=== PATIENT | female | born 1990 | race Caucasian/White ===

== ENCOUNTER → 2019-04-23 11:27 | Outpatient (CLI) | payer OTHER, SELFPAY ==
[2019-04-23 12:56] LABS: Urine Amphetamines Negative (Negative); Urine Barbiturates Negative (Negative); Urine Benzodiazepines Negative (Negative); Urine Cocaine Negative (Negative); Urine MDMA Negative (Negative); Urine Methadone Negative (Negative); Urine Methamphetamines Negative (Negative); Urine Morphine/Opi cutoff 2000 Negative (Negative); Urine Oxycodone Negative (Negative); Urine Phencyclidine Negative (Negative); Urine Tetrahydrocannabinol Negative (Negative); Urine Tricyclic Antidepressant Negative (Negative)
== END ==
PROVIDERS: Family Provider Physician Assistant; PCP Physician Assistant; Visit Provider Family Medicine Sleep Medicine
DX: G47.33 Obstructive sleep apnea (adult) (pediatric) (principal)
CPT/HCPCS: 80305

== ENCOUNTER → 2019-08-24 14:19 | Outpatient (CLI) | payer OTHER, SELFPAY ==
[2019-08-24 14:40] LABS: Hematocrit 38.7 % (36-46); Hemoglobin 13.3 g/dL (12.0-16.0)
[2019-08-24 16:31] LABS: TSH w/ Reflex to FT4 2.43 uIU/mL (0.47-4.68)
== END ==
PROVIDERS: Family Provider Physician Assistant; PCP Physician Assistant; Visit Provider Obstetrics & Gynecology
DX: N93.9 Abnormal uterine and vaginal bleeding, unspecified (principal)
CPT/HCPCS: 36415; 84443; 85014; 85018

== ENCOUNTER → 2020-04-26 17:39 | Outpatient (CLI) | payer OTHER, SELFPAY ==
[2020-04-26 18:13] LABS: Add Manual Diff / Slide Review NO; Basophils Absolute Auto 0 /uL (0-100); Basophils Percent Auto 0.4 % (0-2); Eosinophils Absolute Auto 100 /uL (0-450); Eosinophils Percent Auto 0.8 % (2-4); Hematocrit 39.3 % (36-46); Hemoglobin 13.4 g/dL (12.0-16.0); Lymphocytes Absolute Auto 3400 /uL (1100-4500); Lymphocytes Percent Auto 39.3 % (25-40); Mean Corpuscular HGB Conc 34.2 % (30-36); Mean Corpuscular Hemoglobin 30.5 PG (26-34); Mean Corpuscular Volume 89.1 fL (80-100); Monocytes Absolute Auto 500 /uL (0-900); Monocytes Percent Auto 6.2 % (3-14); Neutrophils Absolute Auto 4600 /uL (1500-7000); Neutrophils Percent Auto 53.3 % (50-75); Platelet Count 244 X10^3/uL (150-400); Red Blood Cell Count 4.41 X10^6/uL (4.0-5.2); Red Cell Distribution Width 12.6 % (11.6-14.8); White Blood Cell Count 8.7 X10^3/uL (4.5-11.0)
[2020-04-26 18:34] LABS: Alanine Aminotransferase 15 IU/L (<35); Albumin 4.2 g/dL (3.5-5.0); Albumin Globulin Ratio 1.3 (1.0-2.8); Alkaline Phosphatase 45 U/L (38-126); Aspartate Aminotransferase 23 IU/L (14-36); BUN Creatinine Ratio 9.2 (6-22); Bilirubin Total 1.1 mg/dL (0.2-1.3); Blood Urea Nitrogen 12 mg/dL (7-17); C-Reactive Protein Quant 0.8 mg/dL (<1.0); Calcium 8.9 mg/dL (8.4-10.2); Carbon Dioxide 27 mmol/L (22-32); Chloride 102 mmol/L (98-107); Estimated Glomerular Filt Rate 48.8 mL/min (>60); Globulin 3.2 g/dL (1.7-4.1); Glucose 110 mg/dL (70-100); HEMOLYSIS < 15 (0-50); Potassium 3.8 mmol/L (3.4-5.1); Sodium 136 mmol/L (137-145); Total Protein 7.4 g/dL (6.3-8.2)
[2020-04-26 18:46] LABS: Erythrocyte Sedimentation Rate 6 MM/HR (0-20)
[2020-05-04 09:41] LABS: Adalimumab Antiboday <25 ng/mL (.); Adalimumab Drug Level 10 ug/mL (.)
== END ==
PROVIDERS: Family Provider Physician Assistant; PCP Physician Assistant; Referring Provider Internal Medicine Gastroenterology; Visit Provider Internal Medicine Gastroenterology
DX: K50.90 Crohn's disease, unspecified, without complications (principal)
CPT/HCPCS: 36415; 80053; 80145; 82397; 85025; 85651; 86140

== ENCOUNTER → 2020-05-04 16:18 | Outpatient (CLI) | payer OTHER, SELFPAY ==
[2020-05-04 17:36] LABS: Albumin 4.4 g/dL (3.5-5.0); BUN Creatinine Ratio 13.9 (6-22); Blood Urea Nitrogen 11 mg/dL (7-17); Calcium 9.1 mg/dL (8.4-10.2); Carbon Dioxide 28 mmol/L (22-32); Chloride 103 mmol/L (98-107); Estimated Glomerular Filt Rate > 60.0 mL/min (>60); Glucose 98 mg/dL (70-100); HEMOLYSIS < 15 (0-50); Phosphorous 2.9 mg/dL (2.5-4.5); Sodium 137 mmol/L (137-145)
== END ==
PROVIDERS: Family Provider Physician Assistant; PCP Physician Assistant; Referring Provider Physician Assistant; Visit Provider Physician Assistant
DX: R79.89 Other specified abnormal findings of blood chemistry (principal)
CPT/HCPCS: 36415; 80069

== ENCOUNTER → 2020-09-26 14:47 | Outpatient (CLI) | payer OTHER, SELFPAY ==
[2020-09-26 16:25] LABS: Add Manual Diff / Slide Review NO; Basophils Absolute Auto 0 /uL (0-100); Basophils Percent Auto 0.4 % (0-2); Eosinophils Absolute Auto 100 /uL (0-450); Eosinophils Percent Auto 0.7 % (2-4); Hematocrit 38.2 % (36-46); Hemoglobin 12.9 g/dL (12.0-16.0); Lymphocytes Absolute Auto 3000 /uL (1100-4500); Lymphocytes Percent Auto 42.5 % (25-40); Mean Corpuscular HGB Conc 33.8 % (30-36); Mean Corpuscular Hemoglobin 30.4 PG (26-34); Monocytes Absolute Auto 300 /uL (0-900); Monocytes Percent Auto 4.4 % (3-14); Neutrophils Absolute Auto 3700 /uL (1500-7000); Platelet Count 250 X10^3/uL (150-400); Red Blood Cell Count 4.25 X10^6/uL (4.0-5.2); Red Cell Distribution Width 12.7 % (11.6-14.8); White Blood Cell Count 7.1 X10^3/uL (4.5-11.0)
[2020-09-26 16:49] LABS: Alanine Aminotransferase 12 IU/L (<35); Albumin 3.9 g/dL (3.5-5.0); Albumin Globulin Ratio 1.3 (1.0-2.8); Alkaline Phosphatase 41 U/L (38-126); Aspartate Aminotransferase 19 IU/L (14-36); BUN Creatinine Ratio 14.6 (6-22); Bilirubin Total 1.2 mg/dL (0.2-1.3); Blood Urea Nitrogen 12 mg/dL (7-17); C-Reactive Protein Quant 0.6 mg/dL (<1.0); Carbon Dioxide 26 mmol/L (22-32); Chloride 102 mmol/L (98-107); Estimated Glomerular Filt Rate > 60.0 mL/min (>60); Glucose 129 mg/dL (70-100); HEMOLYSIS < 15 (0-50); Potassium 4.1 mmol/L (3.4-5.1); Sodium 134 mmol/L (137-145); Total Protein 6.9 g/dL (6.3-8.2)
[2020-09-26 17:14] LABS: Erythrocyte Sedimentation Rate 7 MM/HR (0-20)
[2020-10-03 17:39] LABS: Adalimumab Antiboday <25 ng/mL (.); Adalimumab Drug Level 9.5 ug/mL (.)
== END ==
PROVIDERS: Family Provider Physician Assistant; PCP Physician Assistant; Referring Provider Internal Medicine Gastroenterology; Visit Provider Internal Medicine Gastroenterology
DX: K50.90 Crohn's disease, unspecified, without complications (principal)
CPT/HCPCS: 36415; 80053; 80145; 82397; 85025; 85651; 86140

== ENCOUNTER → 2021-02-02 15:04 | Outpatient (CLI) | payer OTHER, SELFPAY ==
[2021-02-02 15:51] LABS: Add Manual Diff / Slide Review NO; Basophils Absolute Auto 0 /uL (0-100); Basophils Percent Auto 0.4 % (0-2); Eosinophils Absolute Auto 0 /uL (0-450); Eosinophils Percent Auto 0.4 % (2-4); Hematocrit 38.9 % (36-46); Hemoglobin 13.4 g/dL (12.0-16.0); Lymphocytes Absolute Auto 3100 /uL (1100-4500); Lymphocytes Percent Auto 38.4 % (25-40); Mean Corpuscular HGB Conc 34.5 % (30-36); Mean Corpuscular Hemoglobin 30.8 PG (26-34); Mean Corpuscular Volume 89.2 fL (80-100); Monocytes Absolute Auto 500 /uL (0-900); Monocytes Percent Auto 6.6 % (3-14); Neutrophils Absolute Auto 4400 /uL (1500-7000); Neutrophils Percent Auto 54.2 % (50-75); Platelet Count 263 X10^3/uL (150-400); Red Blood Cell Count 4.37 X10^6/uL (4.0-5.2); Red Cell Distribution Width 13.4 % (11.6-14.8)
[2021-02-02 16:23] LABS: Alanine Aminotransferase 14 IU/L (<35); Albumin 4.1 g/dL (3.5-5.0); Albumin Globulin Ratio 1.2 (1.0-2.8); Alkaline Phosphatase 54 U/L (38-126); Aspartate Aminotransferase 22 IU/L (14-36); BUN Creatinine Ratio 15.6 (6-22); Bilirubin Total 1.2 mg/dL (0.2-1.3); Blood Urea Nitrogen 12 mg/dL (7-17); C-Reactive Protein Quant 0.7 mg/dL (<1.0); Calcium 9.3 mg/dL (8.4-10.2); Carbon Dioxide 24 mmol/L (22-32); Chloride 103 mmol/L (98-107); Estimated Glomerular Filt Rate > 60.0 mL/min (>60); Globulin 3.3 g/dL (1.7-4.1); Glucose 92 mg/dL (70-100); HEMOLYSIS < 15 (0-50); Potassium 3.9 mmol/L (3.4-5.1); Sodium 136 mmol/L (137-145); Total Protein 7.4 g/dL (6.3-8.2)
[2021-02-02 20:21] LABS: Erythrocyte Sedimentation Rate 9 MM/HR (0-20)
[2021-02-12 09:19] LABS: Adalimumab Antiboday 31 ng/mL (.); Adalimumab Drug Level 9.7 ug/mL (.)
== END ==
PROVIDERS: Family Provider Physician Assistant; PCP Physician Assistant; Referring Provider Internal Medicine Gastroenterology; Visit Provider Internal Medicine Gastroenterology
DX: K50.90 Crohn's disease, unspecified, without complications (principal)
CPT/HCPCS: 36415; 80053; 80145; 82397; 85025; 85651; 86140

== ENCOUNTER → 2021-08-31 13:46 | Outpatient (CLI) | payer OTHER, SELFPAY ==
[2021-08-31 14:32] LABS: Add Manual Diff / Slide Review NO; Basophils Absolute Auto 0 /uL (0-100); Basophils Percent Auto 0.5 % (0-2); Eosinophils Absolute Auto 100 /uL (0-450); Eosinophils Percent Auto 0.8 % (2-4); Hemoglobin 13.7 g/dL (12.0-16.0); Lymphocytes Absolute Auto 2800 /uL (1100-4500); Lymphocytes Percent Auto 38.8 % (25-40); Mean Corpuscular HGB Conc 34.2 % (30-36); Mean Corpuscular Hemoglobin 30.6 PG (26-34); Mean Corpuscular Volume 89.4 fL (80-100); Monocytes Absolute Auto 500 /uL (0-900); Monocytes Percent Auto 7.4 % (3-14); Neutrophils Absolute Auto 3800 /uL (1500-7000); Neutrophils Percent Auto 52.5 % (50-75); Platelet Count 274 X10^3/uL (150-400); Red Blood Cell Count 4.47 X10^6/uL (4.0-5.2); Red Cell Distribution Width 12.3 % (11.6-14.8); White Blood Cell Count 7.3 X10^3/uL (4.5-11.0)
[2021-08-31 15:24] LABS: Free T4, Direct Thyroxine 0.82 ng/dL (0.78-2.19)
[2021-08-31 15:38] LABS: Thyroid Stimulating Hormone 1.79 uIU/mL (0.47-4.68)
[2021-09-01 09:09] LABS: Mumps Virus IgG Antibody >300.0 AU/mL (Immune >10.9); Rubeola Measles IgG > 300.0 AU/mL (Immune >16.4); Varicella IgG Antibody 3599 index (Immune >165)
== END ==
PROVIDERS: Family Provider Physician Assistant; PCP Physician Assistant; Referring Provider Obstetrics & Gynecology; Visit Provider Obstetrics & Gynecology
DX: Z31.69 Encounter for other general counseling and advice on procreation (principal)
CPT/HCPCS: 36415; 84439; 84443; 85025; 86735; 86762; 86765; 86787

== ENCOUNTER 2023-05-14 07:05 | Emergency (ER) | payer OTHER, SELFPAY ==
[2023-05-14 07:16] VITALS: BP 139/98; PULSE 103; RESP 16; TEMP 37; O2SAT 98; BMI 34.7
--- NOTE | 2023-05-14 07:27 | ED_ITS ---
HPI - Wound/Laceration General Chief Complaint: Wound/Laceration Stated Complaint: Had an IV and iv area is swollen lt arm Time Seen by Provider: 05/14/23 07:10 Source: patient Mode of arrival: Ambulatory History of Present Illness HPI narrative: Patient is a 32-year-old female who recently is . She was just discharged on Friday. Had an IV in her left arm. The IV was removed on Friday. It was yesterday when she started to notice some redness and swelling to her left forearm around the IV site. She circled it with a marker. She thinks that this morning it is somewhat worse than what it was yesterday. She denies any f darleen but does have quite a bit of discomfort in that arm. She is . Related Data Home Medications Medication Instructions Recorded Confirmed adalimumab [Humira] SUBCUT .Twice a month 03/29/19 10/08/22 docosahexaenoic acid 200 mg 200 mg PO DAILY 09/10/22 10/08/22 capsule ( DHA) prenat.vits,bernice,gsf-vklo-wqwbd 1 tab PO DAILY 09/10/22 10/08/22 Previous Rx's Medication Instructions Recorded cephalexin 500 mg capsule 500 mg PO QID 5 days #20 caps 05/14/23 Allergies Allergy/AdvReac Type Severity Reaction Status Date / Time amoxicillin Allergy Rash Verified 05/14/23 07:22 infliximab [From Remicade] Allergy Pain in Verified 05/14/23 07:22 joints and Temp Paralyzed eggs Allergy Hives, Uncoded 10/08/22 15:37 Diarrhea Review of Systems Constitutional Constitutional: Reports system reviewed and no additional complaints, except as documented Musculoskeletal Musculoskeletal: Reports system reviewed and no additional complaints, except as documented Integumentary/Breasts Skin/Breast: Reports system reviewed and no additional complaints, except as documented Patient History Medical History Abdominal pain Abnormal uterine bleeding Anemia (~2008) Ankylosing spondylitis (~2008) Crohn's disease (regional enteritis) (~2008) Fatigue Heavy menstrual period (~2016) HSV-1 infection Idiopathic hypersomnia Irregular menstrual cycle Painful menstrual periods Shingles Surgical History Anesthesia History of carpal tunnel release History of tonsillectomy (~1999) Family History (Updated 09/10/22 @ 16:13 by Jacquelyn Montano RN) Sister ADD (attention deficit disorder) without hyperactivity Father ADD (attention deficit disorder) without hyperactivity Mother Anxiety Gestational diabetes Grandmother Diabetes mellitus Grandfather ALS (amyotrophic lateral sclerosis) Social History marital status: number of children: 1 (part-time stepson) household members: spouse and children lives independently: Yes caregiver/support person: Yes housing: house pets and animals: No education level: vocational occupational status: employed (works from home) current occupational exposures/hazards: No special radha needs: No travel history: recent (domestic only) seatbelt use: always helmet use: Yes water heater temp set < 120 deg: Yes working smoke detector in home: Yes fire extinguisher in home: Yes carbon monox detector in home: Yes firearms in home: No do you feel safe at home: Yes Smoking Status: Never smoker second hand exposure: No alcohol intake: former (1-2/week when not ) substance use type: does not use during the past year weight has: remained stable well-balanced diet: about half the time daily servings fruits/ve-4 caffeine: Yes (1 cup coffee/day) Type(s) of exercise: walking, aerobic, regular exercise and weight lifting frequency: 3-4 times per week Smoking Status: Never smoker Substance Use Type: does not use Exam Initial Vital Signs Initial Vital Signs: Vital Signs Temperature 98.6 F 05/14/23 07:16 Pulse Rate 103 H 05/14/23 07:16 Respiratory Rate 16 05/14/23 07:16 Blood Pressure 139/98 H 05/14/23 07:16 Pulse Oximetry 98 05/14/23 07:16 Oxygen Delivery Method Room Air 05/14/23 07:16 Const General: cooperative and comfortable Skin Other: Patient does have a 5 cm x 3 cm area redness around the area where the IV was inserted. There was no streaking up her arm. There was some induration in this area. No abscess. No pustules. Extrem Other: Swelling to the left forearm around the IV site Course Vital Signs Vital signs: Vital Signs - 8 hr 09/20/23 07:16 Temperature 98.6 F Pulse Rate 103 H Respiratory Rate 16 Blood Pressure 139/98 H Pulse Oximetry 98 Oxygen Delivery Method Room Air MDM - Wound/Laceration MDM Narrative Medical decision making narrative: History and physical today is consistent with a small area of cellulitis around the insertion site from the IV. I have low suspicion for an abscess based on he r exam today. I have also low suspicion that this is a DVT or thrombophlebitis given the appearance. Also have low suspicion that there was any infiltration of any medication based on the timing of the redness in the swelling. She is . Will send home on antibiotics. She was given return precautions. She expressed understanding and agreement. Discharge Plan Departure Patient Disposition: Home Clinical Impression: Cellulitis Instructions: DI for Cellulitis -- Adult Activity Restrictions/Additional Instructions: The antibiotic that we are placing you on is considered safe in . I recommend that you take it as directed. You can also take Tylenol and ibuprofen. Keep all of your scheduled medical appointments. Return to the emergency department for new or worsening symptoms. Prescriptions: New cephalexin 500 mg capsule 500 mg PO QID 5 Days Qty: 20 0RF No Action prenat.vits,bernice,rom-yzss-lvaun Tablet 1 tab PO DAILY DHA 200 mg capsule 200 mg PO DAILY adalimumab SUBCUT .Twice a month Referrals: Gege Velez PA-C [Primary Care Provider] - Stand Alone Forms: Patient Portal/API
== END 2023-05-14 07:39 | disposition home or self-care (01) ==
PROVIDERS: Emergency Provider Emergency Medicine; Family Provider Physician Assistant; PCP Physician Assistant
DX: L03.114 Cellulitis of left upper limb (principal)
CPT/HCPCS: 99281; 99282

== ENCOUNTER 2023-09-17 08:15 | Outpatient (RCR) | payer OTHER, SELFPAY ==
--- NOTE | 2023-07-09 16:45 | PT.OIE ---
Current Diagnoses Stress incontinence (female) (male) (07/15/23) Pelvic muscle wasting (07/15/23) Other complications of the puerperium, not elsewhere classified (07/15/23) Pelvic and perineal pain (07/15/23) Past Medical History (Last Reviewed 05/14/23 @ 07:30 by Paco Patel DO) Abdominal pain Abnormal uterine bleeding Anemia (~2008) Ankylosing spondylitis (~2008) Crohn's disease (regional enteritis) (~2008) Fatigue Heavy menstrual period (~2016) HSV-1 infection Idiopathic hypersomnia Irregular menstrual cycle Painful menstrual periods Shingles Past Surgical History (Last Reviewed 01/01/22 @ 14:55 by Jaden Russell MD) Anesthesia History of carpal tunnel release History of tonsillectomy (~1999) Visit Care Team Role Provider Type Anya Murray PA-C Family Provider Advanced Refractory Technician Primary Care Provider Specialty: Medical Address: [address] [place] [address], [id number] Email: Donato Wood MD Attending Provider Non-Staff Referring Provider Specialty: RN LICENSED PRACTICAL Address: [address] [place] [address], [id number] Fax: Email: Physical Therapy Initial Evaluation PT-OP-A Visit Information Start: 07/08/23 15:12 Freq: Status: Active Protocol: Document 07/09/23 09:00 [facility] (Rec: 07/09/23 12:52 [facility] [id number]) Out-Patient Physical Therapy Visit Information Visit Information Visit Type Initial Evaluation Visit Start Time 09:05 Visit Stop Time 19:50 Total Visit Minutes 45 Visit Number 1 Evaluation Information Evaluation Date 07/09/23 PT-OP-B Current Condition Start: 07/08/23 15:12 Freq: Status: Active Protocol: Document 07/09/23 09:00 [facility] (Rec: 07/09/23 09:24 [facility] [id number]) Current Condition History of Current Condition Onset Date May 10 Current Complaints urinary leakge, pelvic pressure and heaviness, perineal tear History of Current Condition pt notes she had her baby girl 05/10/23, baby was sunnyside out and Viki pushed her out in 10 pushes. She tore extensively and hemmoraghed and had to go to the OR, she had to wait 5 hours to push as the doctor was not there. She had all internal stitches and it did tear into her rectum and she had over 100 stitches. She was on antibiotics for 4-5 weeks. She also has Crohn's disease so healing takes longer. She was on oxycodone x 5 weeks In the last couple of weeks sitting is better, she is now off the oxycodene and has been able to go on walks. SHe describes her pain as a pressure. She feels it consistently. The first two weeks she needed to weak a diaper as she had no control. Now voiding is better but she definately leaks, SHe is able to control her bowels but she has urgency and has to go right when she gets the urge. SHe does have hemmhroids. She notes numbness and decreased sensation. She is feeling low back pain and feeling that she has no core control. Treatment Goals Patient/Caregiver Goals Viki's goals include improving strength of the pelvic floor and overall core control eliminating urinary incontinence and fecal urgency . She would like to return to exercise and walking Current Functional Impairments (Reported) Functional Limitations- Mobility/Gait unable to walk greater than 30 min prior to pelvic fatigue PT-OP-C Subjective Start: 07/08/23 15:12 Freq: Status: Active Protocol: Document 07/08/23 14:31 [facility] (Rec: 07/15/23 14:45 [facility] [id number]) OP-PT Subjective Patient Comments Patient Comments pt notes the stretchng seems so difficult, feels numb internally, baby posteriorlly turned PT-OP-I Pelvic Floor Start: 07/08/23 15:12 Freq: Status: Active Protocol: Document 07/09/23 09:00 [facility] (Rec: 07/15/23 16:23 [facility] [id number]) Pelvic Floor Assessment Urine Pelvic Floor Surgery No: s/p vaginal delivery with tearing Urinary Symptoms Pain Other Urinary Symptoms pelvic pressure Leakage Size Large Leakage Cause Cough,Exercise,Lifting,Sneeze Other Leakage Causes constant leakage all day despite activity, wearing maxi pads for protections Leaks Per Day constant Urine Pad Type Maxi Pad Pelvic Clock Pelvic Clock 12-3 Atrophy Pelvic Clock 3-6 Atrophy,Tightness Pelvic Clock 6-9 Atrophy Pelvic Clock 9-12 Atrophy Contraction Ability Voluntary Contraction Weak Voluntary Relaxation Weak Manual Muscle Testing Left 1 Manual Muscle Testing Right 3 Manual Muscle Testing Anterior 1 Manual Muscle Testing Posterior 1 Muscle Endurance (Seconds) 2 Comments Pelvic Floor Comments pt notes she had 100 stitches in her pelvic floor after delivery, she is tight and numb on the left side as compared to the right side PT-OP-J Posture/Palpation/Skin Start: 07/08/23 15:12 Freq: Status: Active Protocol: Document 07/09/23 09:00 [facility] (Rec: 07/15/23 16:25 [facility] [id number]) Palpation Assessment Location pelvic floor Palpation Details tightness and guarding on the left lateral wall of the levator ani, there is no sensation on the left side to palpation This is the side where the majority of all the stitches were PT-OP-M Strength Start: 07/08/23 15:12 Freq: Status: Active Protocol: Document 07/09/23 09:00 [facility] (Rec: 07/15/23 16:24 [facility] [id number]) Trunk Strength Trunk Manual Muscle Testing Core Stabilization decreased core stabilization following delivery as pt underwent surgical repair, decreased Transverse abdominal activation PT-OP-Q Treatments Start: 07/08/23 15:12 Freq: Status: Active Protocol: Document 07/15/23 14:46 [facility] (Rec: 07/15/23 15:05 [facility] [id number]) Therapeutic Exercises Supine Exercises supine ball squeeze Reps/Minutes x 10 reps supine pelvic floor contract relax Reps/Minutes x 10 reps holding x 10 reps and resting x 10 reps 13 uv average and 30 ma Comments with EMG biofeedback PT-OP-T Assessment and Plan Start: 07/08/23 15:12 Freq: Status: Active Protocol: Document 07/09/23 09:00 [facility] (Rec: 07/15/23 16:29 [facility] [id number]) Physical Therapy Assessment Rehab Potential Rehabilitation Potential Excellent Evaluation Complexity Number of Personal Factors/Comorbidities 0 Number of Body Systems Impaired 1-2 Clinical Presentation at Evaluation Stable Impairments Impairments Activity Tolerance,Functional Activities,Strength,Tone Other Impairments urinary incontinence Goals 4 Impairment Decreased pelvic floor endurance Short Term Goal (STG) Viki is able to sustain a pelvic floor contraction in supine x 10 seconds STG Duration 5 weeks Revenue Research Analyst Goal (LTG) Viki is able to sustain a pelvic floor contraction in standing for 5 seconds LTG Duration 12 weeks 3 Impairment Pelvic pressure that increases with standing and activity limiting endurance for walking and exercise Jail Goal (LTG) Viki is able to return to walking 1-2 miles without increase in pelvic pressure LTG Duration 12 weeks 2 Impairment Constant urinary leakage throughout the day and Viki is using maxi pads for protection Jail Goal (LTG) Viki reports a overall reduction in urinary leakage and is able to decrease protection to a panty liner LTG Duration 12 weeks 1 Impairment Decreased pelvic floor strength with MMT of 1/5 for all turpin of the levator ani Short Term Goal (STG) Viki is educated in pelvic floor facilitation and EMG biofeedback is used to help her with pelvic floor recruitment STG Duration 3 weeks Revenue Research Analyst Goal (LTG) Viki is able to improve her pelvic floor strength to 3/5 MMT or better for improved support to her pelvic organs LTG Duration 12 weeks Assessment Summary Assessment Viki is a 33 year old female 2 months postpostpartum from a vaginal delivery with internal tearing and 4th perineal tearing with delivery . Viki notes she needed to be taken to the OR after delivery due to bleeding and she had over 100 stitches. She has had a slow recovery and reports constant urinary leakage at this time. She also fecal urgency and is able to control bowel movements as long as she is close to a bathroom. With pelvic floor exam today Viki is weak throughout her pelvic floor and tests 1/5 MMT for all aspects of the levator ani. She presents with numbness to palpation on the left lateral wall of the pelvic clock. There is some guarding and tightness on the left side of the levator ani and this is were Viki notes most of her internal stitches were located. She was given gentle stretches today to start working on relaxing the left lateral wall of the levator ani. Viki has difficulty sustaining a pelvic floor contraction more than a few seconds. Her goals are to return to exercise and walking without leakage and to eliminate pelvic pressure. Viki is a good candidate for Pelvic PT Physical Therapy Plan Frequency and Duration Frequency of Treatment 1x/Week Duration of treatment (weeks) 12 Plan of Care Start Date 07/09/23 Plan of Care End Date 10/01/23 Therapeutic Interventions Therapeutic Interventions Home Exercise Program,Manual Therapy,Neuromuscular Re- education,Patient/Caregiver Education,Self-Care/Home Management,Soft Tissue Mobilization,Therapeutic Exercises Modalities Biofeedback,Electric Stimulation Other Therapeutic Interventions NMES for the pelvic floor Next Visit Focus/Plan Next Note Type Treatment Note Next Visit Plan Begin NMES next visit for pelvic floor neuro stimulation and initiate EMG biofeedback
--- NOTE | 2023-07-09 16:46 | PT.OPPOC ---
Physical, Occupational & Speech Therapy At [facility] Current Diagnoses Stress incontinence (female) (male) (07/15/23) Pelvic muscle wasting (07/15/23) Other complications of the puerperium, not elsewhere classified (07/15/23) Pelvic and perineal pain (07/15/23) Visit Care Team Role Provider Type Anya Murray PA-C Family Provider Advanced Cooking Teacher Primary Care Provider Specialty: Medical Address: [address] [place] [address], [phone] Email: Donato Wood MD Attending Provider Non-Staff Referring Provider Specialty: CLIENT ARCHITECT Address: [address] [place] [address], [phone] Fax: Email: Plan Of Care PT-OP-T Assessment and Plan Start: 07/08/23 15:12 Freq: Status: Active Protocol: Document 07/09/23 09:00 [facility] (Rec: 07/15/23 16:29 [facility] [id number]) Physical Therapy Assessment Rehab Potential Rehabilitation Potential Excellent Evaluation Complexity Number of Personal Factors/Comorbidities 0 Number of Body Systems Impaired 1-2 Clinical Presentation at Evaluation Stable Impairments Impairments Activity Tolerance,Functional Activities,Strength,Tone Other Impairments urinary incontinence Goals 4 Impairment Decreased pelvic floor endurance Short Term Goal (STG) Viki is able to sustain a pelvic floor contraction in supine x 10 seconds STG Duration 5 weeks [employer] Tax Goal (LTG) Viki is able to sustain a pelvic floor contraction in standing for 5 seconds LTG Duration 12 weeks 3 Impairment Pelvic pressure that increases with standing and activity limiting endurance for walking and exercise [employer] Tax Goal (LTG) Viik is able to return to walking 1-2 miles without increase in pelvic pressure LTG Duration 12 weeks 2 Impairment Constant urinary leakage throughout the day and Viki is using maxi pads for protection Mcc Goal (LTG) Viki reports a overall reduction in urinary leakage and is able to decrease protection to a panty liner LTG Duration 12 weeks 1 Impairment Decreased pelvic floor strength with MMT of 1/5 for all turpin of the levator ani Short Term Goal (STG) Viki is educated in pelvic floor facilitation and EMG biofeedback is used to help her with pelvic floor recruitment STG Duration 3 weeks Mcc Goal (LTG) Viki is able to improve her pelvic floor strength to 3/5 MMT or better for improved support to her pelvic organs LTG Duration 12 weeks Assessment Summary Assessment Viki is a 33 year old female 2 months from a vaginal delivery with internal tearing and 4th perineal tearing with delivery . Viki notes she needed to be taken to the OR after delivery due to bleeding and she had over 100 stitches. She has had a slow recovery and reports constant urinary leakage at this time. She also fecal urgency and is able to control bowel movements as long as she is close to a bathroom. With pelvic floor exam today Viki is weak throughout her pelvic floor and tests 1/5 MMT for all aspects of the levator ani. She presents with numbness to palpation on the left lateral wall of the pelvic clock. There is some guarding and tightness on the left side of the levator ani and this is were Viki notes most of her internal stitches were located. She was given gentle stretches today to start working on relaxing the left lateral wall of the levator ani. Viki has difficulty sustaining a pelvic floor contraction more than a few seconds. Her goals are to return to exercise and walking without leakage and to eliminate pelvic pressure. Viki is a good candidate for Pelvic PT Physical Therapy Plan Frequency and Duration Frequency of Treatment 1x/Week Duration of treatment (weeks) 12 Plan of Care Start Date 07/09/23 Plan of Care End Date 10/01/23 Therapeutic Interventions Therapeutic Interventions Home Exercise Program,Manual Therapy,Neuromuscular Re- education,Patient/Caregiver Education,Self-Care/Home Management,Soft Tissue Mobilization,Therapeutic Exercises Modalities Biofeedback,Electric Stimulation Other Therapeutic Interventions NMES for the pelvic floor Next Visit Focus/Plan Next Note Type Treatment Note Next Visit Plan Begin NMES next visit for pelvic floor neuro stimulation and initiate EMG biofeedback Plan of Care Dates Plan of Care Start Date 07/09/23 Plan of Care End Date 10/01/23 Electronically Signed by: Doreen Younger, PT 07/15/23 [id number] If you are in agreement with this Plan of Care, please return a signed and dated copy. I have reviewed this Plan of Care and certify that the skilled therapy services above are required to meet the patient?s needs. Physician Signature Date Printed Name and Credentials Clinical Instructor Signature Printed Name and Credentials
--- NOTE | 2023-07-15 16:59 | PT.OTN ---
Current Diagnoses Stress incontinence (female) (male) (07/15/23) Pelvic muscle wasting (07/15/23) Other complications of the puerperium, not elsewhere classified (07/15/23) Pelvic and perineal pain (07/15/23) Physical Therapy Treatment Note PT-OP-A Visit Information Start: 07/08/23 15:12 Freq: Status: Active Protocol: Document 07/15/23 14:30 [facility] (Rec: 07/15/23 16:57 [facility] [id number]) Out-Patient Physical Therapy Visit Information Visit Information Visit Type Treatment Note Visit Start Time 14:30 Visit Stop Time 15:15 Total Visit Minutes 45 Visit Number 2 PT-OP-B Current Condition Start: 07/08/23 15:12 Freq: Status: Active Protocol: Document 07/09/23 09:00 [facility] (Rec: 07/09/23 09:24 [facility] [id number]) Current Condition History of Current Condition Onset Date May 10 Current Complaints urinary leakge, pelvic pressure and heaviness, perineal tear History of Current Condition pt notes she had her baby girl 05/10/23, baby was sunnyside out and Viki pushed her out in 10 pushes. She tore extensively and hemmoraghed and had to go to the OR, she had to wait 5 hours to push as the doctor was not there. She had all internal stitches and it did tear into her rectum and she had over 100 stitches. She was on antibiotics for 4-5 weeks. She also has Crohn's disease so healing takes longer. She was on oxycodone x 5 weeks In the last couple of weeks sitting is better, she is now off the oxycodene and has been able to go on walks. SHe describes her pain as a pressure. She feels it consistently. The first two weeks she needed to weak a diaper as she had no control. Now voiding is better but she definately leaks, SHe is able to control her bowels but she has urgency and has to go right when she gets the urge. SHe does have hemmhroids. She notes numbness and decreased sensation. She is feeling low back pain and feeling that she has no core control. Treatment Goals Patient/Caregiver Goals Viki's goals include improving strength of the pelvic floor and overall core control eliminating urinary incontinence and fecal urgency . She would like to return to exercise and walking Current Functional Impairments (Reported) Functional Limitations- Mobility/Gait unable to walk greater than 30 min prior to pelvic fatigue PT-OP-C Subjective Start: 07/08/23 15:12 Freq: Status: Active Protocol: Document 07/15/23 16:52 [facility] (Rec: 07/15/23 16:54 [facility] [id number]) OP-PT Subjective Patient Comments Patient Comments Viki notes the numbness makes it difficult to feel her pelvic floor, she has been trying the stretches PT-OP-I Pelvic Floor Start: 07/08/23 15:12 Freq: Status: Active Protocol: Document 07/09/23 09:00 [facility] (Rec: 07/15/23 16:23 [facility] [id number]) Pelvic Floor Assessment Urine Pelvic Floor Surgery No: s/p vaginal delivery with tearing Urinary Symptoms Pain Other Urinary Symptoms pelvic pressure Leakage Size Large Leakage Cause Cough,Exercise,Lifting,Sneeze Other Leakage Causes constant leakage all day despite activity, wearing maxi pads for protections Leaks Per Day constant Urine Pad Type Maxi Pad Pelvic Clock Pelvic Clock 12-3 Atrophy Pelvic Clock 3-6 Atrophy,Tightness Pelvic Clock 6-9 Atrophy Pelvic Clock 9-12 Atrophy Contraction Ability Voluntary Contraction Weak Voluntary Relaxation Weak Manual Muscle Testing Left 1 Manual Muscle Testing Right 3 Manual Muscle Testing Anterior 1 Manual Muscle Testing Posterior 1 Muscle Endurance (Seconds) 2 Comments Pelvic Floor Comments pt notes she had 100 stitches in her pelvic floor after delivery, she is tight and numb on the left side as compared to the right side PT-OP-J Posture/Palpation/Skin Start: 07/08/23 15:12 Freq: Status: Active Protocol: Document 07/09/23 09:00 [facility] (Rec: 07/15/23 16:25 [facility] [id number]) Palpation Assessment Location pelvic floor Palpation Details tightness and guarding on the left lateral wall of the levator ani, there is no sensation on the left side to palpation This is the side where the majority of all the stitches were PT-OP-M Strength Start: 07/08/23 15:12 Freq: Status: Active Protocol: Document 07/09/23 09:00 [facility] (Rec: 07/15/23 16:24 [facility] [id number]) Trunk Strength Trunk Manual Muscle Testing Core Stabilization decreased core stabilization following delivery as pt underwent surgical repair, decreased Transverse abdominal activation PT-OP-Q Treatments Start: 07/08/23 15:12 Freq: Status: Active Protocol: Document 07/15/23 14:46 [facility] (Rec: 07/15/23 15:05 [facility] [id number]) Therapeutic Exercises Supine Exercises supine ball squeeze Reps/Minutes x 10 reps supine pelvic floor contract relax Reps/Minutes x 10 reps holding x 10 reps and resting x 10 reps 13 uv average and 30 ma Comments with EMG biofeedback Neuro Re-Education Treatment Other Activities NMES for the pelvic floor Reps/Duration x 10 min Comments vaginal sensor use for NMES and level to 10 intensity, Viki tolerated well and could feel left side only Self-Care/Home Management Treatment Education Patient Education Home Exercise Program,Pain Management Other Education education on elevation of the pelvis to decompress the pelvic floor and HEP PT-OP-T Assessment and Plan Start: 07/08/23 15:12 Freq: Status: Active Protocol: Document 07/15/23 14:30 [facility] (Rec: 07/15/23 16:57 [facility] [id number]) Physical Therapy Assessment Assessment Summary Assessment Viki was initiated today on both EMG biofeedback as well as NMES for the pelvic floor. She was able to feel the left side only for pelvic floor work with NMES. Physical Therapy Plan Frequency and Duration Frequency of Treatment 1x/Week Duration of treatment (weeks) 12 Plan of Care Start Date 07/09/23 Plan of Care End Date 10/01/23 Next Visit Focus/Plan Next Note Type Treatment Note Next Visit Plan continue NMES next visit for pelvic floor neuro stimulation and initiate EMG biofeedback, begin working TA stabilization in quadruped
--- NOTE | 2023-07-22 17:55 | PT.OTN ---
Current Diagnoses Stress incontinence (female) (male) (07/22/23) Pelvic muscle wasting (07/22/23) Other complications of the puerperium, not elsewhere classified (07/22/23) Pelvic and perineal pain (07/22/23) Physical Therapy Treatment Note PT-OP-A Visit Information Start: 07/08/23 15:12 Freq: Status: Active Protocol: Document 07/22/23 09:01 [facility] (Rec: 07/22/23 09:33 [facility] [id number]) Out-Patient Physical Therapy Visit Information Visit Information Visit Type Treatment Note Visit Start Time 09:05 Visit Stop Time 09:50 Total Visit Minutes 45 Visit Number 3 PT-OP-B Current Condition Start: 07/08/23 15:12 Freq: Status: Active Protocol: Document 07/09/23 09:00 [facility] (Rec: 07/09/23 09:24 [facility] [id number]) Current Condition History of Current Condition Onset Date May 10 Current Complaints urinary leakge, pelvic pressure and heaviness, perineal tear History of Current Condition pt notes she had her baby girl 05/10/23, baby was sunnyside out and Viki pushed her out in 10 pushes. She tore extensively and hemmoraghed and had to go to the OR, she had to wait 5 hours to push as the doctor was not there. She had all internal stitches and it did tear into her rectum and she had over 100 stitches. She was on antibiotics for 4-5 weeks. She also has Crohn's disease so healing takes longer. She was on oxycodone x 5 weeks In the last couple of weeks sitting is better, she is now off the oxycodene and has been able to go on walks. SHe describes her pain as a pressure. She feels it consistently. The first two weeks she needed to weak a diaper as she had no control. Now voiding is better but she definately leaks, SHe is able to control her bowels but she has urgency and has to go right when she gets the urge. SHe does have hemmhroids. She notes numbness and decreased sensation. She is feeling low back pain and feeling that she has no core control. Treatment Goals Patient/Caregiver Goals Viki's goals include improving strength of the pelvic floor and overall core control eliminating urinary incontinence and fecal urgency . She would like to return to exercise and walking Current Functional Impairments (Reported) Functional Limitations- Mobility/Gait unable to walk greater than 30 min prior to pelvic fatigue PT-OP-C Subjective Start: 07/08/23 15:12 Freq: Status: Active Protocol: Document 07/22/23 09:01 [facility] (Rec: 07/22/23 09:33 [facility] [id number]) OP-PT Subjective Patient Comments Patient Comments Viki notes she had some soreness after last visit, elevating her hips helps relieve the pressure a lot, she is realizing that if she rests and elevates her pelvis she does better PT-OP-I Pelvic Floor Start: 07/08/23 15:12 Freq: Status: Active Protocol: Document 07/22/23 09:33 [facility] (Rec: 07/22/23 09:33 [facility] [id number]) Pelvic Floor Assessment Contraction Ability Voluntary Contraction Weak Voluntary Relaxation Weak Manual Muscle Testing Left 1 Manual Muscle Testing Right 3 Manual Muscle Testing Anterior 1 Manual Muscle Testing Posterior 1 Muscle Endurance (Seconds) 2 PT-OP-J Posture/Palpation/Skin Start: 07/08/23 15:12 Freq: Status: Active Protocol: Document 07/09/23 09:00 [facility] (Rec: 07/15/23 16:25 [facility] [id number]) Palpation Assessment Location pelvic floor Palpation Details tightness and guarding on the left lateral wall of the levator ani, there is no sensation on the left side to palpation This is the side where the majority of all the stitches were PT-OP-M Strength Start: 07/08/23 15:12 Freq: Status: Active Protocol: Document 07/09/23 09:00 [facility] (Rec: 07/15/23 16:24 [facility] [id number]) Trunk Strength Trunk Manual Muscle Testing Core Stabilization decreased core stabilization following delivery as pt underwent surgical repair, decreased Transverse abdominal activation PT-OP-Q Treatments Start: 07/08/23 15:12 Freq: Status: Active Protocol: Document 07/22/23 09:01 [facility] (Rec: 07/22/23 09:33 [facility] [id number]) Therapeutic Exercises Supine Exercises quick contractions Equipment Used x 10 reps Comments pt will wait a weet to start these at home supine ball squeeze Reps/Minutes x 10 reps 5 sec on 10 sec relaz supine pelvic floor contract relax Comments average 15.3 and max of 34.5 Other Exercises TA with marches Reps/Minutes 10-20 reps Comments 10- 20 rep quadruped TA Reps/Minutes x10 quadruped thoracic rotation Reps/Minutes x 5 reps each side quadruped sidebends Reps/Minutes x 10 reps cat cow Reps/Minutes x 10 reps Self-Care/Home Management Treatment Education Patient Education Home Exercise Program,Pain Management Other Education pt was given a size medium dilator to start working on pelvic floor relaxation, she was given a HEP for core stabilization andf lumbar stretches PT-OP-T Assessment and Plan Start: 07/08/23 15:12 Freq: Status: Active Protocol: Document 07/22/23 09:01 [facility] (Rec: 07/22/23 09:33 [facility] [id number]) Physical Therapy Assessment Assessment Summary Assessment Viki did well today adding in TA stabilization and was able to also work in supine marches today, she demonstrated 3 for resting tone on EMG biofeedback Physical Therapy Plan Frequency and Duration Frequency of Treatment 1x/Week Duration of treatment (weeks) 12 Plan of Care Start Date 07/09/23 Plan of Care End Date 10/01/23 Therapeutic Interventions Therapeutic Interventions Home Exercise Program,Manual Therapy,Neuromuscular Re- education,Patient/Caregiver Education,Self-Care/Home Management,Soft Tissue Mobilization,Therapeutic Exercises Modalities Biofeedback,Electric Stimulation Other Therapeutic Interventions NMES for the pelvic floor Next Visit Focus/Plan Next Note Type Treatment Note Next Visit Plan continue NMES next visit for pelvic floor neuro stimulation and initiate EMG biofeedback, begin working TA stabilization in quadruped
--- NOTE | 2023-07-29 13:10 | PT.OTN ---
Current Diagnoses Stress incontinence (female) (male) (07/29/23) Pelvic muscle wasting (07/29/23) Other complications of the puerperium, not elsewhere classified (07/29/23) Pelvic and perineal pain (07/29/23) Physical Therapy Treatment Note PT-OP-A Visit Information Start: 07/08/23 15:12 Freq: Status: Active Protocol: Document 07/29/23 09:04 [facility] (Rec: 07/29/23 09:51 [facility] [id number]) Out-Patient Physical Therapy Visit Information Visit Information Visit Type Treatment Note Visit Start Time 09:05 Visit Stop Time 09:50 Total Visit Minutes 45 Visit Number 4 PT-OP-B Current Condition Start: 07/08/23 15:12 Freq: Status: Active Protocol: Document 07/09/23 09:00 [facility] (Rec: 07/09/23 09:24 [facility] [id number]) Current Condition History of Current Condition Onset Date May 10 Current Complaints urinary leakge, pelvic pressure and heaviness, perineal tear History of Current Condition pt notes she had her baby girl 05/10/23, baby was sunnyside out and Viki pushed her out in 10 pushes. She tore extensively and hemmoraghed and had to go to the OR, she had to wait 5 hours to push as the doctor was not there. She had all internal stitches and it did tear into her rectum and she had over 100 stitches. She was on antibiotics for 4-5 weeks. She also has Crohn's disease so healing takes longer. She was on oxycodone x 5 weeks In the last couple of weeks sitting is better, she is now off the oxycodene and has been able to go on walks. SHe describes her pain as a pressure. She feels it consistently. The first two weeks she needed to weak a diaper as she had no control. Now voiding is better but she definately leaks, SHe is able to control her bowels but she has urgency and has to go right when she gets the urge. SHe does have hemmhroids. She notes numbness and decreased sensation. She is feeling low back pain and feeling that she has no core control. Treatment Goals Patient/Caregiver Goals Viki's goals include improving strength of the pelvic floor and overall core control eliminating urinary incontinence and fecal urgency . She would like to return to exercise and walking Current Functional Impairments (Reported) Functional Limitations- Mobility/Gait unable to walk greater than 30 min prior to pelvic fatigue PT-OP-C Subjective Start: 07/08/23 15:12 Freq: Status: Active Protocol: Document 07/29/23 09:04 [facility] (Rec: 07/29/23 09:51 [facility] [id number]) OP-PT Subjective Patient Comments Patient Comments pt karla hasn't been as sore, she did get her first period friday-friday Patient Reported Progress Improving PT-OP-I Pelvic Floor Start: 07/08/23 15:12 Freq: Status: Active Protocol: Document 07/22/23 09:33 [facility] (Rec: 07/22/23 09:33 [facility] [id number]) Pelvic Floor Assessment Contraction Ability Voluntary Contraction Weak Voluntary Relaxation Weak Manual Muscle Testing Left 1 Manual Muscle Testing Right 3 Manual Muscle Testing Anterior 1 Manual Muscle Testing Posterior 1 Muscle Endurance (Seconds) 2 PT-OP-J Posture/Palpation/Skin Start: 07/08/23 15:12 Freq: Status: Active Protocol: Document 07/09/23 09:00 [facility] (Rec: 07/15/23 16:25 [facility] [id number]) Palpation Assessment Location pelvic floor Palpation Details tightness and guarding on the left lateral wall of the levator ani, there is no sensation on the left side to palpation This is the side where the majority of all the stitches were PT-OP-M Strength Start: 07/08/23 15:12 Freq: Status: Active Protocol: Document 07/09/23 09:00 [facility] (Rec: 07/15/23 16:24 [facility] [id number]) Trunk Strength Trunk Manual Muscle Testing Core Stabilization decreased core stabilization following delivery as pt underwent surgical repair, decreased Transverse abdominal activation PT-OP-Q Treatments Start: 07/08/23 15:12 Freq: Status: Active Protocol: Document 07/29/23 09:04 [facility] (Rec: 07/29/23 09:51 [facility] [id number]) Therapeutic Exercises Supine Exercises supine ball squeeze Reps/Minutes x 10 reps 5 sec on 10 sec relaz Comments 18.0 and max 38.3 supine pelvic floor contract relax Comments average 17.9 and max 37.2 uv Other Exercises TA with marches Reps/Minutes 10-20 reps Comments 10- 20 rep quadruped TA Reps/Minutes x10 quadruped thoracic rotation Reps/Minutes x 5 reps each side quadruped sidebends Reps/Minutes x 10 reps cat cow Reps/Minutes x 10 reps Self-Care/Home Management Treatment Activities Self-Care/Home Management Activities pt was educated on dilator use to work in a supine position and to work up to having the dilator in 5-10 min static HEP was updated and pt was given handouts PT-OP-T Assessment and Plan Start: 07/08/23 15:12 Freq: Status: Active Protocol: Document 07/30/23 09:04 [facility] (Rec: 07/30/23 13:10 [facility] [id number]) Physical Therapy Assessment Assessment Summary Assessment Viki is showing a improvement in pelvic floor strength and endurance, she had her MD follow up and with pelvic exam he notes stitches are healing well and tissue is improving overall Physical Therapy Plan Frequency and Duration Frequency of Treatment 1x/Week Duration of treatment (weeks) 12 Plan of Care Start Date 07/09/23 Plan of Care End Date 10/01/23 Therapeutic Interventions Therapeutic Interventions Home Exercise Program,Manual Therapy,Neuromuscular Re- education,Patient/Caregiver Education,Self-Care/Home Management,Soft Tissue Mobilization,Therapeutic Exercises Modalities Biofeedback,Electric Stimulation Other Therapeutic Interventions NMES for the pelvic floor Next Visit Focus/Plan Next Note Type Treatment Note Next Visit Plan continue NMES next visit for pelvic floor neuro stimulation and initiate EMG biofeedback, begin working TA stabilization in quadruped
--- NOTE | 2023-08-06 13:17 | PT.OTN ---
Current Diagnoses Stress incontinence (female) (male) (08/06/23) Pelvic muscle wasting (08/06/23) Other complications of the puerperium, not elsewhere classified (08/06/23) Pelvic and perineal pain (08/06/23) Physical Therapy Treatment Note PT-OP-A Visit Information Start: 07/08/23 15:12 Freq: Status: Active Protocol: Document 08/06/23 09:09 [facility] (Rec: 08/06/23 09:58 [facility] [id number]) Out-Patient Physical Therapy Visit Information Visit Information Visit Type Treatment Note Visit Start Time 09:09 Visit Stop Time 09:55 Total Visit Minutes 44 Visit Number 5 PT-OP-B Current Condition Start: 07/08/23 15:12 Freq: Status: Active Protocol: Document 07/09/23 09:00 [facility] (Rec: 07/09/23 09:24 [facility] [id number]) Current Condition History of Current Condition Onset Date May 10 Current Complaints urinary leakge, pelvic pressure and heaviness, perineal tear History of Current Condition pt notes she had her baby girl 05/10/23, baby was sunnyside out and Viki pushed her out in 10 pushes. She tore extensively and hemmoraghed and had to go to the OR, she had to wait 5 hours to push as the doctor was not there. She had all internal stitches and it did tear into her rectum and she had over 100 stitches. She was on antibiotics for 4-5 weeks. She also has Crohn's disease so healing takes longer. She was on oxycodone x 5 weeks In the last couple of weeks sitting is better, she is now off the oxycodene and has been able to go on walks. SHe describes her pain as a pressure. She feels it consistently. The first two weeks she needed to weak a diaper as she had no control. Now voiding is better but she definately leaks, SHe is able to control her bowels but she has urgency and has to go right when she gets the urge. SHe does have hemmhroids. She notes numbness and decreased sensation. She is feeling low back pain and feeling that she has no core control. Treatment Goals Patient/Caregiver Goals Viki's goals include improving strength of the pelvic floor and overall core control eliminating urinary incontinence and fecal urgency . She would like to return to exercise and walking Current Functional Impairments (Reported) Functional Limitations- Mobility/Gait unable to walk greater than 30 min prior to pelvic fatigue PT-OP-C Subjective Start: 07/08/23 15:12 Freq: Status: Active Protocol: Document 08/06/23 09:09 [facility] (Rec: 08/06/23 09:58 [facility] [id number]) OP-PT Subjective Patient Comments Patient Comments pt notes she has had some back pain, she had a harder time finding her pelvic floor when her back pain was flared PT-OP-I Pelvic Floor Start: 07/08/23 15:12 Freq: Status: Active Protocol: Document 07/22/23 09:33 [facility] (Rec: 07/22/23 09:33 [facility] [id number]) Pelvic Floor Assessment Contraction Ability Voluntary Contraction Weak Voluntary Relaxation Weak Manual Muscle Testing Left 1 Manual Muscle Testing Right 3 Manual Muscle Testing Anterior 1 Manual Muscle Testing Posterior 1 Muscle Endurance (Seconds) 2 PT-OP-J Posture/Palpation/Skin Start: 07/08/23 15:12 Freq: Status: Active Protocol: Document 07/09/23 09:00 [facility] (Rec: 07/15/23 16:25 [facility] [id number]) Palpation Assessment Location pelvic floor Palpation Details tightness and guarding on the left lateral wall of the levator ani, there is no sensation on the left side to palpation This is the side where the majority of all the stitches were PT-OP-M Strength Start: 07/08/23 15:12 Freq: Status: Active Protocol: Document 07/09/23 09:00 [facility] (Rec: 07/15/23 16:24 [facility] [id number]) Trunk Strength Trunk Manual Muscle Testing Core Stabilization decreased core stabilization following delivery as pt underwent surgical repair, decreased Transverse abdominal activation PT-OP-Q Treatments Start: 07/08/23 15:12 Freq: Status: Active Protocol: Document 08/06/23 09:09 [facility] (Rec: 08/06/23 09:58 [facility] [id number]) Therapeutic Exercises Supine Exercises supine pelvic floor contract relax Reps/Minutes x 10 reps Comments average 19.3 and 35.7 uv max Other Exercises kade pose Reps/Minutes hold 1-2 minutes prone over the ball Reps/Minutes to open uo low back quadruped TA Reps/Minutes x10 quadruped thoracic rotation Reps/Minutes x 5 reps each side quadruped sidebends Reps/Minutes x 10 reps cat cow Reps/Minutes x 10 reps Manual Therapy Treatment Joint Mobilizations manual thoracic mobilizations in prone over body pillow Direction DOYLE wilson Grade II Comments tightness noted throughout the thoracic spine and in the paraspinals Neuro Re-Education Treatment Other Activities NMES for the pelvic floor Reps/Duration 5 min Comments pt notes she can only feel on the left side today with NMES PT-OP-T Assessment and Plan Start: 07/08/23 15:12 Freq: Status: Active Protocol: Document 08/06/23 09:09 [facility] (Rec: 08/06/23 13:10 [facility] [id number]) Physical Therapy Assessment Rehab Potential Rehabilitation Potential Excellent Evaluation Complexity Number of Personal Factors/Comorbidities 0 Number of Body Systems Impaired 1-2 Clinical Presentation at Evaluation Stable Goals 4 Impairment Decreased pelvic floor endurance Short Term Goal (STG) Viki is able to sustain a pelvic floor contraction in supine x 10 seconds STG Duration 5 weeks Slate [employer] Goal (LTG) Viki is able to sustain a pelvic floor contraction in standing for 5 seconds LTG Duration 12 weeks 3 Impairment Pelvic pressure that increases with standing and activity limiting endurance for walking and exercise Intermediate Goal (LTG) Viki is able to return to walking 1-2 miles without increase in pelvic pressure LTG Duration 12 weeks 2 Impairment Constant urinary leakage throughout the day and Viki is using maxi pads for protection Slate Cutter Goal (LTG) Viki reports a overall reduction in urinary leakage and is able to decrease protection to a panty liner LTG Duration 12 weeks 1 Impairment Decreased pelvic floor strength with MMT of 1/5 for all turpin of the levator ani Short Term Goal (STG) Viki is educated in pelvic floor facilitation and EMG biofeedback is used to help her with pelvic floor recruitment STG Duration 3 weeks Intermediate Goal (LTG) Viki is able to improve her pelvic floor strength to 3/5 MMT or better for improved support to her pelvic organs LTG Duration 12 weeks Assessment Summary Assessment I worked today on mobilizations for the T spine as Viki notes how tight and sore she is feeling. Her daughter is 3 months now and she is carrying her alot during the day and I explained the cummulative effect on her body. Her stretches were reviewed and I also gave her a option of stretching over the ball. Both prone for her low back as well as supine. With pelvic floor exercises she is demonstrating continued improved strength. Physical Therapy Plan Frequency and Duration Frequency of Treatment 1x/Week Duration of treatment (weeks) 12 Plan of Care Start Date 07/09/23 Plan of Care End Date 10/01/23 Therapeutic Interventions Therapeutic Interventions Home Exercise Program,Manual Therapy,Neuromuscular Re- education,Patient/Caregiver Education,Self-Care/Home Management,Soft Tissue Mobilization,Therapeutic Exercises Modalities Biofeedback,Electric Stimulation Other Therapeutic Interventions NMES for the pelvic floor Next Visit Focus/Plan Next Note Type Treatment Note Next Visit Plan review new stretches over the ball, continue with EMG biofeedback and add in hip ER
--- NOTE | 2023-08-19 15:51 | PT.OTN ---
Current Diagnoses Stress incontinence (female) (male) (08/19/23) Pelvic muscle wasting (08/19/23) Other complications of the puerperium, not elsewhere classified (08/19/23) Pelvic and perineal pain (08/19/23) Physical Therapy Treatment Note PT-OP-A Visit Information Start: 07/08/23 15:12 Freq: Status: Active Protocol: Document 08/19/23 09:42 [facility] (Rec: 08/19/23 10:33 [facility] [id number]) Out-Patient Physical Therapy Visit Information Visit Information Visit Type Treatment Note Visit Start Time 09:45 Visit Stop Time 10:30 Total Visit Minutes 45 Visit Number 6 PT-OP-B Current Condition Start: 07/08/23 15:12 Freq: Status: Active Protocol: Document 07/09/23 09:00 [facility] (Rec: 07/09/23 09:24 [facility] [id number]) Current Condition History of Current Condition Onset Date May 10 Current Complaints urinary leakge, pelvic pressure and heaviness, perineal tear History of Current Condition pt notes she had her baby girl 05/10/23, baby was sunnyside out and Viki pushed her out in 10 pushes. She tore extensively and hemmoraghed and had to go to the OR, she had to wait 5 hours to push as the doctor was not there. She had all internal stitches and it did tear into her rectum and she had over 100 stitches. She was on antibiotics for 4-5 weeks. She also has Crohn's disease so healing takes longer. She was on oxycodone x 5 weeks In the last couple of weeks sitting is better, she is now off the oxycodene and has been able to go on walks. SHe describes her pain as a pressure. She feels it consistently. The first two weeks she needed to weak a diaper as she had no control. Now voiding is better but she definately leaks, SHe is able to control her bowels but she has urgency and has to go right when she gets the urge. SHe does have hemmhroids. She notes numbness and decreased sensation. She is feeling low back pain and feeling that she has no core control. Treatment Goals Patient/Caregiver Goals Viki's goals include improving strength of the pelvic floor and overall core control eliminating urinary incontinence and fecal urgency . She would like to return to exercise and walking Current Functional Impairments (Reported) Functional Limitations- Mobility/Gait unable to walk greater than 30 min prior to pelvic fatigue PT-OP-C Subjective Start: 07/08/23 15:12 Freq: Status: Active Protocol: Document 08/19/23 09:42 [facility] (Rec: 08/19/23 10:33 [facility] [id number]) OP-PT Subjective Patient Comments Patient Comments She has been going for walks and not feeling as much pelvic pressure, she hasn't had to take the [place]. She is feeling her low back tightness and has been trying to work on stretches. Patient Reported Progress Improving PT-OP-I Pelvic Floor Start: 07/08/23 15:12 Freq: Status: Active Protocol: Document 07/22/23 09:33 [facility] (Rec: 07/22/23 09:33 [facility] [id number]) Pelvic Floor Assessment Contraction Ability Voluntary Contraction Weak Voluntary Relaxation Weak Manual Muscle Testing Left 1 Manual Muscle Testing Right 3 Manual Muscle Testing Anterior 1 Manual Muscle Testing Posterior 1 Muscle Endurance (Seconds) 2 PT-OP-J Posture/Palpation/Skin Start: 07/08/23 15:12 Freq: Status: Active Protocol: Document 07/09/23 09:00 [facility] (Rec: 07/15/23 16:25 [facility] [id number]) Palpation Assessment Location pelvic floor Palpation Details tightness and guarding on the left lateral wall of the levator ani, there is no sensation on the left side to palpation This is the side where the majority of all the stitches were PT-OP-M Strength Start: 07/08/23 15:12 Freq: Status: Active Protocol: Document 07/09/23 09:00 [facility] (Rec: 07/15/23 16:24 [facility] [id number]) Trunk Strength Trunk Manual Muscle Testing Core Stabilization decreased core stabilization following delivery as pt underwent surgical repair, decreased Transverse abdominal activation PT-OP-Q Treatments Start: 07/08/23 15:12 Freq: Status: Active Protocol: Document 08/19/23 09:42 [facility] (Rec: 08/19/23 10:33 [facility] [id number]) Therapeutic Exercises Supine Exercises quick contractions Reps/Minutes x 15 supine pelvic floor contract relax Reps/Minutes x 10 reps Comments average 17.9 and max 33.6 Sidelying Exercises clam shells Reps/Minutes 2 x 10 reps Other Exercises supine foam roll stretch Reps/Minutes 5 min down dog Comments hold 2 min kade pose Reps/Minutes hold 1-2 minutes prone over the ball Reps/Minutes to open uo low back Comments Viki did not feel a lot with this stretch tday PT-OP-T Assessment and Plan Start: 07/08/23 15:12 Freq: Status: Active Protocol: Document 08/19/23 09:42 [facility] (Rec: 08/19/23 15:51 [facility] [id number]) Physical Therapy Assessment Assessment Summary Assessment We worked on stretches adding in the foam roll and down dog today for Viki. She notes she has been on the pain meds for so long that if now that she is off she is finally feeling things in her body. We talked about not stretching into pain but to work on opening up her anterior chest and then stretching for her lumbar paraspinals. I added in clam shells today as well for lateral wall stabilization . Viki is still not feeling the left side of the levator ani with pelvic floor contraction. Physical Therapy Plan Frequency and Duration Frequency of Treatment 1x/Week Duration of treatment (weeks) 12 Plan of Care Start Date 07/09/23 Plan of Care End Date 10/01/23 Therapeutic Interventions Therapeutic Interventions Home Exercise Program,Manual Therapy,Neuromuscular Re- education,Patient/Caregiver Education,Self-Care/Home Management,Soft Tissue Mobilization,Therapeutic Exercises Modalities Biofeedback,Electric Stimulation Other Therapeutic Interventions NMES for the pelvic floor Next Visit Focus/Plan Next Note Type Treatment Note Next Visit Plan review clam shells and TA stabilization, continue with NMES and pelvic floor endurance holds
--- NOTE | 2023-08-27 12:00 | PT.OTN ---
Current Diagnoses Stress incontinence (female) (male) (08/27/23) Pelvic muscle wasting (08/27/23) Other complications of the puerperium, not elsewhere classified (08/27/23) Pelvic and perineal pain (08/27/23) Physical Therapy Treatment Note PT-OP-A Visit Information Start: 07/08/23 15:12 Freq: Status: Active Protocol: Document 08/27/23 09:50 [facility] (Rec: 08/27/23 12:10 [facility] [id number]) Out-Patient Physical Therapy Visit Information Visit Information Visit Type Treatment Note Visit Start Time 09:50 Visit Stop Time 10:30 Total Visit Minutes 40 Visit Number 7 PT-OP-B Current Condition Start: 07/08/23 15:12 Freq: Status: Active Protocol: Document 07/09/23 09:00 [facility] (Rec: 07/09/23 09:24 [facility] [id number]) Current Condition History of Current Condition Onset Date May 10 Current Complaints urinary leakge, pelvic pressure and heaviness, perineal tear History of Current Condition pt notes she had her baby girl 05/10/23, baby was sunnyside out and Viki pushed her out in 10 pushes. She tore extensively and hemmoraghed and had to go to the OR, she had to wait 5 hours to push as the doctor was not there. She had all internal stitches and it did tear into her rectum and she had over 100 stitches. She was on antibiotics for 4-5 weeks. She also has Crohn's disease so healing takes longer. She was on oxycodone x 5 weeks In the last couple of weeks sitting is better, she is now off the oxycodene and has been able to go on walks. SHe describes her pain as a pressure. She feels it consistently. The first two weeks she needed to weak a diaper as she had no control. Now voiding is better but she definately leaks, SHe is able to control her bowels but she has urgency and has to go right when she gets the urge. SHe does have hemmhroids. She notes numbness and decreased sensation. She is feeling low back pain and feeling that she has no core control. Treatment Goals Patient/Caregiver Goals Viki's goals include improving strength of the pelvic floor and overall core control eliminating urinary incontinence and fecal urgency . She would like to return to exercise and walking Current Functional Impairments (Reported) Functional Limitations- Mobility/Gait unable to walk greater than 30 min prior to pelvic fatigue PT-OP-C Subjective Start: 07/08/23 15:12 Freq: Status: Active Protocol: Document 08/27/23 09:50 [facility] (Rec: 08/27/23 10:33 [facility] [id number]) OP-PT Subjective Patient Comments Patient Comments pt notes she did really well this past week, she did her exercises two times every day, she is starting to feel better, her baby has slept in her crib x 4 nights, she has been going for a walk every day pushing the stroller. She is trying to go without a pad PT-OP-I Pelvic Floor Start: 07/08/23 15:12 Freq: Status: Active Protocol: Document 07/22/23 09:33 [facility] (Rec: 07/22/23 09:33 [facility] [id number]) Pelvic Floor Assessment Contraction Ability Voluntary Contraction Weak Voluntary Relaxation Weak Manual Muscle Testing Left 1 Manual Muscle Testing Right 3 Manual Muscle Testing Anterior 1 Manual Muscle Testing Posterior 1 Muscle Endurance (Seconds) 2 PT-OP-J Posture/Palpation/Skin Start: 07/08/23 15:12 Freq: Status: Active Protocol: Document 07/09/23 09:00 [facility] (Rec: 07/15/23 16:25 [facility] [id number]) Palpation Assessment Location pelvic floor Palpation Details tightness and guarding on the left lateral wall of the levator ani, there is no sensation on the left side to palpation This is the side where the majority of all the stitches were PT-OP-M Strength Start: 07/08/23 15:12 Freq: Status: Active Protocol: Document 07/09/23 09:00 [facility] (Rec: 07/15/23 16:24 [facility] [id number]) Trunk Strength Trunk Manual Muscle Testing Core Stabilization decreased core stabilization following delivery as pt underwent surgical repair, decreased Transverse abdominal activation PT-OP-Q Treatments Start: 07/08/23 15:12 Freq: Status: Active Protocol: Document 08/27/23 09:50 [facility] (Rec: 08/27/23 10:33 [facility] [id number]) Therapeutic Exercises Supine Exercises templates on EMG biofeedback for eccentric control and coordination Reps/Minutes x 8 min TA with march Reps/Minutes x 10 reps quick contractions Reps/Minutes x15 Comments 34 uv max supine pelvic floor contract relax Reps/Minutes x 10 reps Comments 19.2 39.3 uv Self-Care/Home Management Treatment Education Patient Education Home Exercise Program Other Education education on toileting strategies to fully empty her bladder when voiding, education in elevating her legs up the wall after walking to decompress the bladder PT-OP-T Assessment and Plan Start: 07/08/23 15:12 Freq: Status: Active Protocol: Document 08/27/23 09:50 [facility] (Rec: 08/27/23 10:33 [facility] [id number]) Physical Therapy Assessment Goals 3 Impairment Pelvic pressure that increases with standing and activity limiting endurance for walking and exercise [employer] Goal (LTG) Viki is able to return to walking 1-2 miles without increase in pelvic pressure goal met LTG Duration 12 weeks 2 Impairment Constant urinary leakage throughout the day and Viki is using maxi pads for protection [employer] Goal (LTG) Viki reports a overall reduction in urinary leakage and is able to decrease protection to a panty liner LTG Duration 12 weeks 1 Impairment Decreased pelvic floor strength with MMT of 1/5 for all turpin of the levator ani Short Term Goal (STG) Viki is educated in pelvic floor facilitation and EMG biofeedback is used to help her with pelvic floor recruitment STG Duration 3 weeks [employer] Goal (LTG) Viki is able to improve her pelvic floor strength to 3/5 MMT or better for improved support to her pelvic organs LTG Duration 12 weeks Assessment Summary Assessment Viki is doing better overall with her exercises and pelvic floor strength is improving Physical Therapy Plan Frequency and Duration Frequency of Treatment 1x/Week Duration of treatment (weeks) 12 Plan of Care Start Date 07/09/23 Plan of Care End Date 10/01/23 Next Visit Focus/Plan Next Note Type Treatment Note Next Visit Plan progress abdominal stabilization next visit and check in on how Viki is doing with fully voiding
--- NOTE | 2023-09-03 12:00 | PT.OTN ---
Current Diagnoses Stress incontinence (female) (male) (09/03/23) Pelvic muscle wasting (09/03/23) Other complications of the puerperium, not elsewhere classified (09/03/23) Pelvic and perineal pain (09/03/23) Physical Therapy Treatment Note PT-OP-A Visit Information Start: 07/08/23 15:12 Freq: Status: Active Protocol: Document 09/03/23 10:35 [facility] (Rec: 09/03/23 11:21 [facility] [id number]) Out-Patient Physical Therapy Visit Information Visit Information Visit Type Treatment Note Visit Start Time 10:35 Visit Stop Time 11:15 Total Visit Minutes 40 Visit Number 8 PT-OP-B Current Condition Start: 07/08/23 15:12 Freq: Status: Active Protocol: Document 07/09/23 09:00 [facility] (Rec: 07/09/23 09:24 [facility] [id number]) Current Condition History of Current Condition Onset Date May 10 Current Complaints urinary leakge, pelvic pressure and heaviness, perineal tear History of Current Condition pt notes she had her baby girl 05/10/23, baby was sunnyside out and Viki pushed her out in 10 pushes. She tore extensively and hemmoraghed and had to go to the OR, she had to wait 5 hours to push as the doctor was not there. She had all internal stitches and it did tear into her rectum and she had over 100 stitches. She was on antibiotics for 4-5 weeks. She also has Crohn's disease so healing takes longer. She was on oxycodone x 5 weeks In the last couple of weeks sitting is better, she is now off the oxycodene and has been able to go on walks. SHe describes her pain as a pressure. She feels it consistently. The first two weeks she needed to weak a diaper as she had no control. Now voiding is better but she definately leaks, SHe is able to control her bowels but she has urgency and has to go right when she gets the urge. SHe does have hemmhroids. She notes numbness and decreased sensation. She is feeling low back pain and feeling that she has no core control. Treatment Goals Patient/Caregiver Goals Viki's goals include improving strength of the pelvic floor and overall core control eliminating urinary incontinence and fecal urgency . She would like to return to exercise and walking Current Functional Impairments (Reported) Functional Limitations- Mobility/Gait unable to walk greater than 30 min prior to pelvic fatigue PT-OP-C Subjective Start: 07/08/23 15:12 Freq: Status: Active Protocol: Document 09/03/23 10:35 [facility] (Rec: 09/03/23 11:21 [facility] [id number]) OP-PT Subjective Patient Comments Patient Comments has been going on lots of walks and pushing the stroller , 4.5 miles and she pushed the stroller the whole way. She has been doing her exercises. She has been trying to work on voiding and has been doing the hands up and bending forward and feels she is able to void more PT-OP-I Pelvic Floor Start: 07/08/23 15:12 Freq: Status: Active Protocol: Document 07/22/23 09:33 [facility] (Rec: 07/22/23 09:33 [facility] [id number]) Pelvic Floor Assessment Contraction Ability Voluntary Contraction Weak Voluntary Relaxation Weak Manual Muscle Testing Left 1 Manual Muscle Testing Right 3 Manual Muscle Testing Anterior 1 Manual Muscle Testing Posterior 1 Muscle Endurance (Seconds) 2 PT-OP-J Posture/Palpation/Skin Start: 07/08/23 15:12 Freq: Status: Active Protocol: Document 07/09/23 09:00 [facility] (Rec: 07/15/23 16:25 [facility] [id number]) Palpation Assessment Location pelvic floor Palpation Details tightness and guarding on the left lateral wall of the levator ani, there is no sensation on the left side to palpation This is the side where the majority of all the stitches were PT-OP-M Strength Start: 07/08/23 15:12 Freq: Status: Active Protocol: Document 07/09/23 09:00 [facility] (Rec: 07/15/23 16:24 [facility] [id number]) Trunk Strength Trunk Manual Muscle Testing Core Stabilization decreased core stabilization following delivery as pt underwent surgical repair, decreased Transverse abdominal activation PT-OP-Q Treatments Start: 07/08/23 15:12 Freq: Status: Active Protocol: Document 09/03/23 10:35 [facility] (Rec: 09/03/23 11:21 [facility] [id number]) Therapeutic Exercises Supine Exercises quick contractions Comments 46.uv max supine pelvic floor contract relax Reps/Minutes x 10 reps Comments 25.8 and 44.7 uv Sitting Exercises shoulder abduction Reps/Minutes x 10 level 1 tb shoulder ER with theraband Equipment Used level 1 Reps/Minutes x 10 Other Exercises supine foam roll stretch Other Exercise Name worked on horizontal placement of the foam roll for thoracic mobilization Comments used 1/2 foam roll to be placed horizontally across the T Spine Self-Care/Home Management Treatment Education Patient Education Body Mechanics Other Education education on body mechanics with breast feeding as Viki notes she has been sore in her right upper trap and neck, review of voiding and discussion of ability to progress walking PT-OP-T Assessment and Plan Start: 07/08/23 15:12 Freq: Status: Active Protocol: Document 09/03/23 10:35 [facility] (Rec: 09/04/23 08:11 [facility] [id number]) Physical Therapy Assessment Assessment Summary Assessment Viki demonstrated improvements with pelvic floor activation and endurance holds today, treatment also included mechanic foreman training for using pillows and I added in postural stabilization exercises as Viki notes upper back tightness. We also discussed work station set up as she will be returning to work in 2 weeks Physical Therapy Plan Frequency and Duration Frequency of Treatment 1x/Week Duration of treatment (weeks) 12 Plan of Care Start Date 07/09/23 Plan of Care End Date 10/01/23 Therapeutic Interventions Therapeutic Interventions Home Exercise Program,Manual Therapy,Neuromuscular Re- education,Patient/Caregiver Education,Self-Care/Home Management,Soft Tissue Mobilization,Therapeutic Exercises Modalities Biofeedback,Electric Stimulation Other Therapeutic Interventions NMES for the pelvic floor Next Visit Focus/Plan Next Note Type Treatment Note Next Visit Plan review new postural exercises next visit and continue with pelvic floor stabilization ex, check in with how Viki is doing with return to work
--- NOTE | 2023-09-03 12:00 | PT.OTN ---
Current Diagnoses Stress incontinence (female) (male) (09/03/23) Pelvic muscle wasting (09/03/23) Other complications of the puerperium, not elsewhere classified (09/03/23) Pelvic and perineal pain (09/03/23) Physical Therapy Treatment Note PT-OP-A Visit Information Start: 07/08/23 15:12 Freq: Status: Active Protocol: Document 09/03/23 10:35 [facility] (Rec: 09/03/23 11:21 [facility] [id number]) Out-Patient Physical Therapy Visit Information Visit Information Visit Type Treatment Note Visit Start Time 10:35 Visit Stop Time 11:15 Total Visit Minutes 40 Visit Number 8 PT-OP-B Current Condition Start: 07/08/23 15:12 Freq: Status: Active Protocol: Document 07/09/23 09:00 [facility] (Rec: 07/09/23 09:24 [facility] [id number]) Current Condition History of Current Condition Onset Date May 10 Current Complaints urinary leakge, pelvic pressure and heaviness, perineal tear History of Current Condition pt notes she had her baby girl 05/10/23, baby was sunnyside out and Viki pushed her out in 10 pushes. She tore extensively and hemmoraghed and had to go to the OR, she had to wait 5 hours to push as the doctor was not there. She had all internal stitches and it did tear into her rectum and she had over 100 stitches. She was on antibiotics for 4-5 weeks. She also has Crohn's disease so healing takes longer. She was on oxycodone x 5 weeks In the last couple of weeks sitting is better, she is now off the oxycodene and has been able to go on walks. SHe describes her pain as a pressure. She feels it consistently. The first two weeks she needed to weak a diaper as she had no control. Now voiding is better but she definately leaks, SHe is able to control her bowels but she has urgency and has to go right when she gets the urge. SHe does have hemmhroids. She notes numbness and decreased sensation. She is feeling low back pain and feeling that she has no core control. Treatment Goals Patient/Caregiver Goals Viki's goals include improving strength of the pelvic floor and overall core control eliminating urinary incontinence and fecal urgency . She would like to return to exercise and walking Current Functional Impairments (Reported) Functional Limitations- Mobility/Gait unable to walk greater than 30 min prior to pelvic fatigue PT-OP-C Subjective Start: 07/08/23 15:12 Freq: Status: Active Protocol: Document 09/03/23 10:35 [facility] (Rec: 09/03/23 11:21 [facility] [id number]) OP-PT Subjective Patient Comments Patient Comments has been going on lots of walks and pushing the stroller , 4.5 miles and she pushed the stroller the whole way. She has been doing her exercises. She has been trying to work on voiding and has been doing the hands up and bending forward and feels she is able to void more PT-OP-I Pelvic Floor Start: 07/08/23 15:12 Freq: Status: Active Protocol: Document 07/22/23 09:33 [facility] (Rec: 07/22/23 09:33 [facility] [id number]) Pelvic Floor Assessment Contraction Ability Voluntary Contraction Weak Voluntary Relaxation Weak Manual Muscle Testing Left 1 Manual Muscle Testing Right 3 Manual Muscle Testing Anterior 1 Manual Muscle Testing Posterior 1 Muscle Endurance (Seconds) 2 PT-OP-J Posture/Palpation/Skin Start: 07/08/23 15:12 Freq: Status: Active Protocol: Document 07/09/23 09:00 [facility] (Rec: 07/15/23 16:25 [facility] [id number]) Palpation Assessment Location pelvic floor Palpation Details tightness and guarding on the left lateral wall of the levator ani, there is no sensation on the left side to palpation This is the side where the majority of all the stitches were PT-OP-M Strength Start: 07/08/23 15:12 Freq: Status: Active Protocol: Document 07/09/23 09:00 [facility] (Rec: 07/15/23 16:24 [facility] [id number]) Trunk Strength Trunk Manual Muscle Testing Core Stabilization decreased core stabilization following delivery as pt underwent surgical repair, decreased Transverse abdominal activation PT-OP-Q Treatments Start: 07/08/23 15:12 Freq: Status: Active Protocol: Document 09/03/23 10:35 [facility] (Rec: 09/03/23 11:21 [facility] [id number]) Therapeutic Exercises Supine Exercises quick contractions Comments 46.uv max supine pelvic floor contract relax Reps/Minutes x 10 reps Comments 25.8 and 44.7 uv Sitting Exercises shoulder abduction Reps/Minutes x 10 level 1 tb shoulder ER with theraband Equipment Used level 1 Reps/Minutes x 10 Other Exercises supine foam roll stretch Other Exercise Name worked on horizontal placement of the foam roll for thoracic mobilization Comments used 1/2 foam roll to be placed horizontally across the T Spine Self-Care/Home Management Treatment Education Patient Education Body Mechanics Other Education education on body mechanics with breast feeding as Viki notes she has been sore in her right upper trap and neck, review of voiding and discussion of ability to progress walking PT-OP-T Assessment and Plan Start: 07/08/23 15:12 Freq: Status: Active Protocol: Document 09/03/23 10:35 [facility] (Rec: 09/04/23 08:11 [facility] [id number]) Physical Therapy Assessment Assessment Summary Assessment Viki demonstrated improvements with pelvic floor activation and endurance holds today, treatment also included body trimmer training for using pillows and I added in postural stabilization exercises as Viki notes upper back tightness. We also discussed work station set up as she will be returning to work in 2 weeks Physical Therapy Plan Frequency and Duration Frequency of Treatment 1x/Week Duration of treatment (weeks) 12 Plan of Care Start Date 07/09/23 Plan of Care End Date 10/01/23 Therapeutic Interventions Therapeutic Interventions Home Exercise Program,Manual Therapy,Neuromuscular Re- education,Patient/Caregiver Education,Self-Care/Home Management,Soft Tissue Mobilization,Therapeutic Exercises Modalities Biofeedback,Electric Stimulation Other Therapeutic Interventions NMES for the pelvic floor Next Visit Focus/Plan Next Note Type Treatment Note Next Visit Plan review new postural exercises next visit and continue with pelvic floor stabilization ex, check in with how Viki is doing with return to work
--- NOTE | 2023-09-17 12:28 | PT.OTN ---
Current Diagnoses Stress incontinence (female) (male) (09/17/23) Pelvic muscle wasting (09/17/23) Other complications of the puerperium, not elsewhere classified (09/17/23) Pelvic and perineal pain (09/17/23) Physical Therapy Treatment Note PT-OP-A Visit Information Start: 07/08/23 15:12 Freq: Status: Active Protocol: Document 09/17/23 08:15 [facility] (Rec: 09/17/23 12:18 [facility] [id number]) Out-Patient Physical Therapy Visit Information Visit Information Visit Type Treatment Note Visit Start Time 08:15 Visit Stop Time 09:00 Visit Number 9 Evaluation Information Evaluation Date 07/09/23 PT-OP-B Current Condition Start: 07/08/23 15:12 Freq: Status: Active Protocol: Document 07/09/23 09:00 [facility] (Rec: 07/09/23 09:24 [facility] [id number]) Current Condition History of Current Condition Onset Date May 10 Current Complaints urinary leakge, pelvic pressure and heaviness, perineal tear History of Current Condition pt notes she had her baby girl 05/10/23, baby was sunnyside out and Viki pushed her out in 10 pushes. She tore extensively and hemmoraghed and had to go to the OR, she had to wait 5 hours to push as the doctor was not there. She had all internal stitches and it did tear into her rectum and she had over 100 stitches. She was on antibiotics for 4-5 weeks. She also has Crohn's disease so healing takes longer. She was on oxycodone x 5 weeks In the last couple of weeks sitting is better, she is now off the oxycodene and has been able to go on walks. SHe describes her pain as a pressure. She feels it consistently. The first two weeks she needed to weak a diaper as she had no control. Now voiding is better but she definately leaks, SHe is able to control her bowels but she has urgency and has to go right when she gets the urge. SHe does have hemmhroids. She notes numbness and decreased sensation. She is feeling low back pain and feeling that she has no core control. Treatment Goals Patient/Caregiver Goals Viki's goals include improving strength of the pelvic floor and overall core control eliminating urinary incontinence and fecal urgency . She would like to return to exercise and walking Current Functional Impairments (Reported) Functional Limitations- Mobility/Gait unable to walk greater than 30 min prior to pelvic fatigue PT-OP-C Subjective Start: 07/08/23 15:12 Freq: Status: Active Protocol: Document 09/17/23 08:15 [facility] (Rec: 09/17/23 08:58 [facility] [id number]) OP-PT Subjective Patient Comments Patient Comments pt notes she wants to have a plan going forward with her exercise program, she hasn't been leaking at all. Yesterday she walked 4 miles and felt no pelvic pressure. This is her last scheduled visit as her insurance is changing so she would like to review her exercises. Patient Reported Progress Improving PT-OP-I Pelvic Floor Start: 07/08/23 15:12 Freq: Status: Active Protocol: Document 07/22/23 09:33 [facility] (Rec: 07/22/23 09:33 [facility] [id number]) Pelvic Floor Assessment Contraction Ability Voluntary Contraction Weak Voluntary Relaxation Weak Manual Muscle Testing Left 1 Manual Muscle Testing Right 3 Manual Muscle Testing Anterior 1 Manual Muscle Testing Posterior 1 Muscle Endurance (Seconds) 2 PT-OP-J Posture/Palpation/Skin Start: 07/08/23 15:12 Freq: Status: Active Protocol: Document 07/09/23 09:00 [facility] (Rec: 07/15/23 16:25 [facility] [id number]) Palpation Assessment Location pelvic floor Palpation Details tightness and guarding on the left lateral wall of the levator ani, there is no sensation on the left side to palpation This is the side where the majority of all the stitches were PT-OP-M Strength Start: 07/08/23 15:12 Freq: Status: Active Protocol: Document 07/09/23 09:00 [facility] (Rec: 07/15/23 16:24 [facility] [id number]) Trunk Strength Trunk Manual Muscle Testing Core Stabilization decreased core stabilization following delivery as pt underwent surgical repair, decreased Transverse abdominal activation PT-OP-Q Treatments Start: 07/08/23 15:12 Freq: Status: Active Protocol: Document 09/17/23 08:15 [facility] (Rec: 09/17/23 08:58 [facility] [id number]) Therapeutic Exercises Supine Exercises templates on EMG biofeedback for eccentric control and coordination Reps/Minutes x 8 min TA with october Reps/Minutes x 10 reps Comments added in TA with october up up down down supine pelvic floor contract relax Reps/Minutes x 10 reps Comments 22.8 uv average 38.2 uv max piriformis stretch Reps/Minutes hold 1-2 min supine modified squat stretch Reps/Minutes hold 1-2 min Sidelying Exercises clam shells Reps/Minutes 2 x 10 reps Sitting Exercises shoulder abduction Reps/Minutes x 10 level 1 tb shoulder ER with theraband Equipment Used level 1 Reps/Minutes x 10 Other Exercises down dog Comments hold 2 min kade pose Reps/Minutes hold 1-2 minutes quadruped thoracic rotation Reps/Minutes x 5 reps each side quadruped sidebends Reps/Minutes x 10 reps cat cow Reps/Minutes x 10 reps Self-Care/Home Management Treatment Education Patient Education Home Exercise Program Other Education education on exercise progression and HEP moving forward PT-OP-T Assessment and Plan Start: 07/08/23 15:12 Freq: Status: Active Protocol: Document 09/17/23 08:15 [facility] (Rec: 09/17/23 08:58 [facility] [id number]) Physical Therapy Assessment Goals 4 Impairment Decreased pelvic floor endurance Short Term Goal (STG) Viki is able to sustain a pelvic floor contraction in supine x 10 seconds Goal met STG Duration 5 weeks Halfway Goal (LTG) Viki is able to sustain a pelvic floor contraction in standing for 5 seconds Viki will start working on finding her pelvic floor in standing positions with HEP LTG Duration 12 weeks 3 Impairment Pelvic pressure that increases with standing and activity limiting endurance for walking and exercise Halfway Goal (LTG) Viki is able to return to walking 1-2 miles without increase in pelvic pressure goal met LTG Duration 12 weeks 2 Impairment Constant urinary leakage throughout the day and Viki is using maxi pads for protection Order Desk Clerk Goal (LTG) Viki reports a overall reduction in urinary leakage and is able to decrease protection to a panty liner Goal met LTG Duration 12 weeks 1 Impairment Decreased pelvic floor strength with MMT of 1/5 for all turpin of the levator ani Short Term Goal (STG) Viki is educated in pelvic floor facilitation and EMG biofeedback is used to help her with pelvic floor recruitment STG Duration 3 weeks Order Desk Clerk Goal (LTG) Viki is able to improve her pelvic floor strength to 3/5 MMT or better for improved support to her pelvic organs LTG Duration 12 weeks Assessment Summary Assessment Viki has progressed really well overall with her exercises and her symptoms of both pelvic pressure as well as urinary leakage have decreased. She was able to walk 4 miles yesterday without any pressure and without leakage. At this point Viki is showing good independence with her HEP and she will no longer have PT benefits after this visit. She will be discharged to a [facility] at this time. Physical Therapy Plan Discharge Physical Therapy Discharge Comments Viki has switched insurance and no longer has PT benefits. She will be DC at this time
== END 2023-09-24 12:59 | disposition home or self-care (01) ==
LOC: PHYS 08:15
PROVIDERS: Family Provider Physician Assistant; PCP Physician Assistant; Referring Provider Obstetrics & Gynecology; Visit Provider Obstetrics & Gynecology
DX: O90.89 Other complications of the puerperium, not elsewhere classified (principal); R10.2 Pelvic and perineal pain; N81.84 Pelvic muscle wasting; N39.3 Stress incontinence (female) (male)
CPT/HCPCS: 97110; 97112; 97140; 97161; 97535